=== PATIENT | female | born 1995 | race African-American/Black ===

== ENCOUNTER 2018-12-17 04:39 | Emergency (ER) | payer OTHER ==
[~2018-12-17] VITALS: Ht 154.9 cm; Wt 68.0 kg
[2018-12-17 04:41] VITALS: BP 132/78
== END 2018-12-17 06:44 | disposition left against medical advice (07) ==
LOC: ER 04:39
DX: R10.11 Right upper quadrant pain (principal); Z53.21 Procedure and treatment not carried out due to patient leaving prior to being seen by health care provider
CPT/HCPCS: 74176

== ENCOUNTER 2024-03-05 13:52 | Emergency (ER) | payer MEDICAID, OTHER ==
[2024-03-05 14:29] VITALS: BP 118/79; PULSE 92; RESP 18; O2SAT 98
[2024-03-05] MEDS ORDERED: CLIN1CAP70 PO (14:44)
[2024-03-05] MEDS ORDERED: ACET-1080 PO (14:44)
[2024-03-05 14:52] VITALS: TEMP 98.5
[2024-03-05] MEDS: ACETAMINOPHEN 500 MG TAB PO ONE (14:52)
== END 2024-03-05 14:59 | disposition home or self-care (01) ==
LOC: ER 13:52 → EDBD 13:52 → ER 14:59
DX: O26.892 Other specified pregnancy related conditions, second trimester (principal); K04.7 Periapical abscess without sinus; Z3A.20 20 weeks gestation of pregnancy